=== PATIENT | male | born 1930 | race Caucasian/White ===

== ENCOUNTER → 2016-08-15 | Day surgery (SDC) | payer OTHER ==
[~2016-08-15] MED LIST: BACT800T5 PO; BUPIVACAINE/EPINEPHRINE 0.25% 50 ML VIAL ONE; CEPH500C3 PO; LACTATED RINGER'S 1000 ML INJ 1,000 ML ONE; PROPOFOL 200 MG/20 ML AMP IV ONE; ceFAZolin 2 GM PREMIX 50 ML ONE
--- NOTE | 2016-08-15 15:51 | TN ---
cc: HALLEY CARVER M.D. DATE OF SURGERY 08/15/2016 PREOPERATIVE DIAGNOSIS Symptomatic left inguinal hernia. POSTOPERATIVE DIAGNOSIS Symptomatic left inguinal hernia. PROCEDURE Open repair left inguinal hernia with mesh. SURGEON Dr. Halley Carver. PRODUCT FINISHER REE Reaves ANESTHESIA General. INDICATIONS A very pleasant 76-year-old gentleman who has had a left inguinal hernia for a couple years. Developed discomfort and is interested in repair. Examination demonstrates a reducible left inguinal hernia. INTRAOPERATIVE FINDINGS A left direct inguinal hernia. ESTIMATED BLOOD LOSS Minimal. The surgical procedure was assisted by my nurse practitioner. My BATTERY RECHARGER presence was necessary throughout the procedure to provide adequate visualization of anatomic structures. My BATTERY RECHARGER was assisting me throughout the duration of this procedure. The skill set of a nurse practitioner was medically necessary to complete this procedure. During the surgical case the prosthetic lab technician was at the back table, providing appropriate instrumentation while the nurse practitioner was directly assisting me. DESCRIPTION OF PROCEDURE IN DETAIL The patient identified as Reji Briceño taken to the operating room and placed in the supine position. Sequential compression devices were placed on bilateral lower extremities. Following induction of adequate general anesthesia with a laryngeal mass, the left groin was prepped and draped in usual sterile fashion with Betadine. Proposed left groin incision was made with a marking pen. A time-out procedure was performed. Following completion of time-out procedure everyone's satisfaction within the room, the left groin incision was infiltrated with local anesthetic and incision carried out with scalpel. Hemostasis was controlled with electrocautery. Dissection continued posteriorly through subcutaneous tissue, Ke fascia, down to the external oblique fascia. More local anesthetic was placed beneath the external oblique fascia and external oblique fascial fibers were opened in their direction using scalpel and Metzenbaum scissor. No underlying ilioinguinal nerve branch was apparent. The spermatic cord and its contents were from surrounding tissues at the level of pubic tubercle and isolated with Estrada drain. Anterior thickened, scarred cremasteric fibers were divided with electrocautery. The anteromedial surface examined. There was no appreciable indirect inguinal hernia sac initially. Upon further retraction a tiny extent of peritoneum along the anteromedial surface of spermatic cord was identified. It was from surrounding tissues, ligated space and a very small piece amputated with electrocautery and suture ligated with 2-0 Vicryl suture ligature. An adherent scarred, indirect hernia sac with a fatty tissue was reduced from the surrounding spermatic cord structures through the inguinal floor and was held in position with a Ray-Rodger sponge. A 3 x 6 inch piece of ProLite mesh was customized incised using scissors to broadly cover the inguinal floor. It was held in position with interrupted 0 Ethilon sutures which were placed above and below the pubic tubercle into Adam's ligament and the shelving edge of the inguinal ligament inferiorly and laterally into the internal oblique fascia superiorly and medially. A lateral slit was cut to the tails of the mesh. The Ray-Rodger sponge was removed. The tails were tucked beneath the external oblique fascia lateral to the spermatic cord allowing it to pass through the tails of the mesh. A single suture was placed lateral to the spermatic cord structures to approximate the mesh but not to strangulate the spermatic cord. The wound was irrigated copiously with saline. There was no evidence of bleeding. Local anesthetic was placed in and around the cord structures and in the operative field. The external oblique fascia was then closed with running fashion with 2-0 Vicryl. Single 2-0 Vicryl as placed in Ke fascia. Skin was approximated with running 4-0 Monocryl subcuticular suture. Dressings were applied with Mastisol one-half inch brown Steri-Strips, gauze and Tegaderm. The patient tolerated the procedure without apparent complication. Sponge, needle and instrument counts were correct at the end of the case. MD DILLON Woods/BERNARDINO /3:18 PM /3:32 PM JOSE L
== END | disposition home or self-care (01) ==
LOC: ESDC 11:46
PROVIDERS: ATTEND Surgery Trauma Surgery
DX: K40.90 Unilateral inguinal hernia, without obstruction or gangrene, not specified as recurrent (principal)
CPT/HCPCS: 00830; 49505; C1781; J0690; J3010; J7120